=== PATIENT | male | born 2000 | race Caucasian/White ===

== ENCOUNTER 2023-04-30 09:48 | Emergency (ER) | payer OTHER, SELFPAY ==
--- NOTE | ~2023-04-30 | CT_ITS ---
EXAMINATION: CT HEAD WITHOUT CONTRAST CLINICAL INFORMATION: 22-year-old male with headache following injury, loss of consciousness. COMPARISON: 05/20/2019 TECHNIQUE: Contiguous axial imaging was performed from the skull base to vertex without intravenous administration of contrast. This CT examination was performed using dose optimization techniques as appropriate, variously including the following: *Automated exposure control *Adjustment of mA and/or kV according to patient size (this includes techniques or standardized protocols for targeted exams where dose is matched to indication/reason for exam; i.e. extremities or head) *Use of iterative reconstruction technique DLP: 634 mGy-cm FINDINGS: There is no evidence of acute or chronic intracranial hemorrhage, hydrocephalus, masses, midline shift, or herniations. No acute territorial infarctions. Kothari to white matter junction is well preserved. There is stable asymmetry present slightly larger ventricular size on the right. Basal cisterns and sulci are appropriate for age. Calvarium is intact. Paranasal sinuses and mastoids are well aerated. CT/CT head/brain wo IV con IMPRESSION: No acute intracranial pathology.
[2023-04-30 10:03] VITALS: BP 120/76; PULSE 98; RESP 19; TEMP 36.6; O2SAT 98; BMI 23.1
--- NOTE | 2023-04-30 10:24 | ED.HA ---
HPI - Headache General Chief Complaint: Headache Stated Complaint: sinus infection ? Time Seen by Provider: 04/30/23 10:12 Source: patient, RN notes reviewed and old records reviewed Mode of arrival: ambulatory History of Present Illness HPI Narrative: 22-year-old male with no significant past medical history presenting to the ED complaining of congestion, rhinorrhea, bilateral ear pain, dry cough, sore throat, headache x 1 week. Admits to head injury last Wednesday while working on a vehicle, slipped hitting head backwards on cement with + brief LOC. Reports since head injury has been having worsening headaches and nausea. Admits to history of concussions and this feels similar. Reports lightheadedness with fast position changes. Denies vision change/loss, vomiting, neck/back pain, numbness, tingling, weakness, incontinence. Denies taking anticoagulation. Denies difficulty or inability to swallow MD elicited complaint: headache Related Data Allergies Allergy/AdvReac Type Severity Reaction Status Date / Time No Known Allergies Allergy Verified 04/30/23 10:02 [No Known Allergies*] Review of Systems Review of Systems: Constitutional: No Fever, No Chills, No Fatigue, No Malaise ENT/Mouth: + Ear Pain, + Nasal Congestion, No Sinus Pain, No Hoarseness, + sore throat,+ Rhinorrhea, No Swallowing Difficulty Eyes: No Eye Pain, No Swelling, No Redness, No Vision Changes Cardiovascular: No Chest Pain, No SOB, No Edema, No Palpitations Respiratory: No Cough, No Sputum, No Dyspnea Gastrointestinal: No Nausea, No Vomiting, No Diarrhea, No Constipation, No Abdominal pain Musculoskeletal: No joint pain, No Myalgias, No Joint Swelling Skin: No Skin Lesions, No rash Neuro: No Weakness, No Numbness, No Paresthesias, +Loss of Consciousness, + lightheaded, + Headache Yes all other systems are reviewed and are negative Constitutional: Constitutional: Reports as per HPI Neurologic: Denies Abnormal speech present PMFSH Past Medical History Attestation statement: The following information was validated with the patient. Source: old records reviewed Social History Social History Advance Directives: No Advance Directives Information Provided: No Physical Exam Vital Signs: Vital Signs: Last Vital Signs Temp 98 F 04/30/23 10:03 Pulse 98 04/30/23 10:03 Resp 19 04/30/23 10:03 BP 120/76 04/30/23 10:03 Pulse Ox 98 04/30/23 10:03 O2 Del Method Room Air 04/30/23 10:03 BMI result Body Mass Index 23.1 Const: General: cooperative, healthy appearing, no acute distress, alert and awake Orientation/consciousness: patient oriented x3 Limitations: no limitations HEENT: Head: Yes normal to inspection and Yes atraumatic Ears: hearing grossly normal bilaterally, external ears normal, TM's normal bilaterally and mastoids normal General nose exam: Normal external nose present and Nasal discharge present (+ congestion) Face and sinus: Yes normal facial exam Mouth: Normal oral and palatal mucosa present Throat: Yes posterior oropharynx normal, Yes tonsils normal, Yes uvula midline, No peritonsillar mass and No uvula laterally displaced Eyes: General: appearance normal, both eyes and all related structures EOM: EOMs intact bilaterally Neck: Neck: Yes normal visual inspection and Yes no meningeal signs Resp: Effort & Inspection: normal respiratory effort, no respiratory distress and no stridor Auscultation: clear to auscultation bilaterally and no wheezes Cardio: Rate: regular rate Heart sounds: S1 normal heart sound present and S2 normal heart sound present Back/Spine/Pelvis: Other: No midline cervical/thoracic/lumbar spinous tenderness/step-off or deformity Skin: Rashes: no rashes Wounds: no wounds Neuro: General: patient oriented x3, gait normal, tone normal, moves all extremities, no meningeal signs, no focal motor deficits and CN's II-XI intact bilaterally Cranial nerves: Yes CN's II-XII intact bilaterally and Yes Bilaterally intact EOM present Cognition (Neuro): normal cognition Speech: No Abnormal speech present Gait exam (Neuro): Normal gait present Motor exam (neuro): 5/5 motor strength present throughout Extrem: General: Yes normal to inspection Course Course Course Narrative: CT head/brain wo IV con IMPRESSION: No acute intracranial pathology. -COVID/flu and rapid strep negative Results discussed with patient including worrisome signs and symptoms and strict return precautions, and when to return to the emergency department. They verbalized understanding and feel safe for discharge at this time. Medical Decision Making Medical Decision Making MDM Narrative: 22-year-old male with no significant past medical history presenting to the ED complaining of congestion, rhinorrhea, bilateral ear pain, dry cough, sore throat, headache x 1 week. Admits to head injury last Wednesday while working on a vehicle, slipped hitting head backwards on cement with + brief LOC. on exam vital signs stable, NAD, nontoxic appearing, physical exam as noted above, no focal neuro deficits, TMs and oropharynx WNL. Concern for concussion vs viral syndrome vs strep pharyngitis. No evidence of [employer]/retropharyngeal abscess. Lower suspicion for pneumonia, ICH. No evidence for otitis media/externa Plan: Viral testing, rapid strep, head CT Please refer to course for remaining clinical decision making, interpretation of labs/imaging results, and discussions with consultants and/or family members. Differential Diagnosis Differential Diagnoses: The differential diagnosis associated with the presentation includes As above Admission/Observation Consideration of admission/observation: Escalation of care including admission/observation considered Lab Data Labs: Lab Results 04/30/23 04/30/23 04/30/23 Range/Units 10:25 10:25 10:25 COVID-19 (JAIME) Negative (Negative) COVID-19 Clin Com See Note Influenza Type A ([facility]) Negative (Negative) Influenza Type B ([facility]) Negative (Negative) Influenza A & B Note See Note S. pyogenes GrpA [facility]REG[facility] Negative (Negative) Radiology Impression Discussion of test interpretation with radiology: I have reviewed the radiologist's reading. External Record Review External record reviewed: Inpatient record, Office record, Outpatient record, Prior outpatient labs, Prior outpatient radiology, Primary care record and Outside ED record Tests considered The following testing was considered but not selected: As above Prescription Management I considered prescription management with: Pain Medication Discharge Plan Discharge Clinical Impression: Acute viral syndrome, Concussion Patient Disposition: Home, Self-Care Instructions: Concussion (ED), Viral Syndrome (ED) Additional Instructions: Your head CT is unremarkable. you tested negative for COVID, flu, and strep throat You likely have a mild concussion Rest Practice brain rest, meaning avoid bright lights, excessive screen time Take Tylenol /Motrin for pain Follow-up with her doctor If symptoms persist or worsen you persistent or worsening headache/nausea/vomiting return to the ED Referrals: Physician,Unknown J [Primary Care Provider] - 5 days Stand Alone Forms: Work/School Release Interventions: ED Discharge Assessment Last Done: 04/30/23 12:07 Discharge Date/Time: 04/30/23 12:09
[2023-04-30 10:50] LABS: COVID-19 Test Negative (Negative); IDNOW Serial# 08D9AD1C; IDNOW Serial# 9DB6401D; IDNOW Serial# BCCEAD1C; Influenza A Negative (Negative); Influenza B2 Negative (Negative); Strep A Nucleic Acid Negative (Negative)
== END 2023-04-30 12:09 | disposition home or self-care (01) ==
PROVIDERS: Physician Assistant; Emergency Provider Emergency Medicine Emergency Medical Services
DX: B34.9 Viral infection, unspecified (principal); Z20.822 Contact with and (suspected) exposure to COVID-19; S06.0X0A Concussion without loss of consciousness, initial encounter; W01.198A Fall on same level from slipping, tripping and stumbling with subsequent striking against other object, initial encounter; Y93.89 Activity, other specified; Y92.9 Unspecified place or not applicable; Y99.9 Unspecified external cause status
CPT/HCPCS: 70450; 87502; 87635; 87651; 99284

== ENCOUNTER → 2025-04-10 10:28 | Outpatient (BNVA) | payer OTHER, SELFPAY | PROVIDERS: Visit Provider Physician Assistant Medical | DX: T63.441A Toxic effect of venom of bees, accidental (unintentional), initial encounter (principal) | CPT/HCPCS: 99202 ==

== ENCOUNTER → 2025-04-12 09:30 | Outpatient (BNVA) | payer OTHER, SELFPAY | PROVIDERS: Visit Provider Physician Assistant Medical | DX: T63.441A Toxic effect of venom of bees, accidental (unintentional), initial encounter (principal) | CPT/HCPCS: 99213 ==